=== PATIENT | male | born 1955 | race Caucasian/White ===

== ENCOUNTER 2020-02-09 09:59 | Emergency (ER) | payer MEDICARE, SELFPAY ==
--- NOTE | 2020-02-09 10:07 | ED.URI ---
HPI - URI/Sore Throat General Chief Complaint: Upper Respiratory Infection Stated Complaint: Cough weak lightheaded Time Seen by Provider: 02/09/20 10:14 Source: patient and RN notes reviewed History of Present Illness HPI Narrative: Patient is a 64-year-old male that presents the urgent care with complaints of cough, fatigue, runny nose. Patient states is been ongoing for approximately 9 days and he is requesting a Z-Lorenzo for his sinus infection . Patient is also requesting to be swab for influenza considering his grandson had flu a 9 days ago. Denies of any fever or shortness of breath. Patient denies any risk factors for COVID. No other acute complaints. No acute distress noted. Patient read the plan of care. Related Data Home Medications Medication Instructions Recorded Confirmed No Home Medications 02/09/20 02/09/20 Allergies Allergy/AdvReac Type Severity Reaction Status Date / Time Tetanus Vaccines and Toxoid Allergy Swelling Verified 02/09/20 10:18 Review of Systems Review of Systems: Narrative: CONSTITUTIONAL: Denies fever, chills, or sweats. Reports of fatigue EYES: Denies visual changes, redness, or discharge. ENT: Reports of rhinorrhea and intermittent congestion CARDIOVASCULAR: Denies chest pain, palpitations, or edema. RESPIRATORY: Reports of nonproductive cough without dyspnea GASTROINTESTINAL: Denies abdominal pain, nausea, vomiting, or diarrhea. GENITOURINARY: Denies dysuria or hematuria. SKIN: Denies rash or itching. MUSCULOSKELETAL: Denies back pain, joint pain, or myalgia. NEUROLOGIC: Denies headache, numbness, or weakness. All other systems reviewed are negative, except as documented in HPI. PMFSH Comments At the time of my signature, I reviewed and agree with the nursing past medical, surgical, social, and family history. There is no relevant family history pertinent to the patient complaint. Exam Narrative: Exam Narrative: GENERAL: This is a well-nourished, well-developed patient, in no apparent distress. HEAD: normocephalic, atraumatic. EYES: PERRL. Sclera clear/white. Vision is grossly intact. EARS: External ears normal, auditory canals clear and without drainage, TMs normal without perforation. Hearing grossly intact. NOSE: External nose normal with no obvious nasal discharge, mild bilateral erythemic nares with clear rhinorrhea. THROAT: Mucous membranes moist, posterior pharynx clear. Mild postnasal drainage NECK: Neck supple CARDIOVASCULAR: Regular rate and rhythm without murmurs, gallops, or rubs. RESPIRATORY: Clear to auscultation. Breath sounds equal bilaterally. No wheezes, rales, or rhonchi. SKIN: warm, intact with no suspicious lesions or rash, good texture and turgor. NEURO: awake, alert, and oriented to person, place and time. There were no obvious focal neurologic abnormalities. EXTREMITIES: No clubbing, cyanosis, or edema. Course Vital Signs Vital signs: Vital Signs Temperature 98.3 F 02/09/20 10:08 Pulse Rate 91 02/09/20 10:08 Respiratory Rate 18 02/09/20 10:08 Blood Pressure 173/96 H 02/09/20 10:08 Pulse Oximetry 97 02/09/20 10:08 Temperature 98.3 F 02/09/20 10:08 Pulse Rate 91 02/09/20 10:08 Respiratory Rate 18 02/09/20 10:08 Blood Pressure 173/96 H 02/09/20 10:08 Pulse Oximetry 97 02/09/20 10:08 Reviewed?patient is informed that they may have pre-hypertension or hypertension based on a blood pressure reading in the department. I recommend the patient call the primary care provider listed on their discharge instructions or a physician of their choice this week to arrange follow-up for further evaluation of possible pre-hypertension or hypertension. MDM - URI/Sore Throat MDM Narrative Medical decision making narrative: Reviewed lab results with the patient. He is aware that her flu swab was negative. Advised the patient to use [id number] remedies for upper respiratory virus. If symptoms persist and he would like to follow-u
[2020-02-09 10:08] VITALS: BP 173/96; PULSE 91; RESP 18; TEMP 36.8; O2SAT 97
== END 2020-02-09 10:47 | disposition home or self-care (01) ==
PROVIDERS: Emergency Provider Nurse Practitioner Family
DX: J06.9 Acute upper respiratory infection, unspecified (principal)
CPT/HCPCS: 87804; 99213; G0463

== ENCOUNTER 2022-01-16 10:03 | Outpatient (CLI) | payer OTHER, SELFPAY ==
--- NOTE | ~2022-01-16 | CT_ITS ---
EXAMINATION: CT lung screening DATE: 01/16/2022 10:21 INDICATION: Personal history of nicotine dependence TECHNIQUE: Computed tomography (CT) of the chest was performed without intravenous contrast. The dose -length product was 83.73 mGy-cm. Automated exposure control and iterative reconstruction technique w ere employed. COMPARISON: None FINDINGS: No significant pleural or pericardial effusion. No thoracic lymphadenopathy. Heart size is normal. There is mild atherosclerosis. The upper abdomen is unremarkable. There is emphysema. No endo bronchial lesions. There is dependent atelectasis. There is a 3 mm right upper lobe nodule, image 41. There are a few additional 2-3 mm upper lobe nodules. There is a 3 mm right lower lobe nodule, image 75. There is right lower lobe atelectasis. No pneumothorax. No endobronchial lesions. Mild thoracic spondylosis. IMPRESSION: 1. Lung-RADS category 2: Benign appearance or behavior. Continue annual screening with noncontrast lo w-dose chest CT in 12 months. Reviewed, dictated and finalized at location A. [employer] MACH[employer] IMPRESSION: 1. Lung-RADS category 2: Benign appearance or behavior. Continue annual screeni ng with noncontrast low-dose chest CT in 12 months.
== END 2022-01-16 10:04 | disposition home or self-care (01) ==
LOC: ANHIMG 10:07
PROVIDERS: PCP Family Medicine; Visit Provider Nurse Practitioner Family
DX: Z87.891 Personal history of nicotine dependence (principal)
CPT/HCPCS: 71271

== ENCOUNTER 2022-05-08 01:15 | Day surgery (SDC) | payer OTHER, SELFPAY ==
[2022-04-22 13:12] VITALS: BMI 24.3
[2022-05-08 09:33] VITALS: BP 162/84; PULSE 80; RESP 18; TEMP 36.2; O2SAT 98
--- NOTE | 2022-05-08 09:39 | WPDANESEPPF ---
Anes - Initial Pre Proc Eval Procedure: Operation Date: 05/08/22 10:30 Proposed Procedures p Esophagogastroduodenoscopy & Screening Colonoscopy - Flex Ordonez MD Date/Time: 05/08/22 09:39 Surgeon: Flex Ordonez MD Pre Op Diagnosis: hx of colon polyps, nausea Patient Data Age: 66 Gender: M Height: 1.65 m Weight: 68.2 kg Last Vital Signs Temp 36.2 C L 05/08/22 09:33 Pulse 80 05/08/22 09:33 Resp 18 05/08/22 09:33 BP 162/84 H 05/08/22 09:33 Pulse Ox 98 05/08/22 09:33 O2 Del Method Room Air 05/08/22 09:33 Allergies Allergy/AdvReac Type Severity Reaction Status Date / Time Tetanus Vaccines and Toxoid Allergy Unknown SWELLING, Verified 05/08/22 09:31 MUSCLE CRAMPING Home Medications Medication Instructions Recorded Confirmed Type tamsulosin 0.4 mg capsule 0.4 mg PO DAILY #30 caps 05/06/22 05/08/22 Rx Patient hx anesthesia problems: none Family hx anesthesia problems: none Results Review: All pre-operative results and documents have been reviewed as part of the pre-operative evaluation. [facility] Past Medical History Medical History (Updated 05/02/22 @ 08:38 by Carolina Shaw NP) Arthritis BPH without obstruction/lower urinary tract symptoms Cerumen impaction Chronic back pain Dizziness Elevated PSA, less than 10 ng/ml (01/17/22) PSA 4.36 on 01/17/2022 Encounter for screening for other suspected endocrine disorder Encounter to establish care History of stomach ulcers Hypertension Loose stools Nausea Neoplasm of skin (~07/2021) suspicious skin lesions right upper inner thigh Nocturia elevated PSA 4.36 on 01/17/2022 Personal history of colonic polyps Polycythemia (01/17/22) hemoglobin 17.0 with hematocrit elevated at 51.5 on 01/17/2022 Right hand pain Screening for lung cancer (01/17/22) screening CT chest 01/16/2022 with several small pulmonary nodules appearing benign less than 3 mm with recheck in 12 months Tinea cruris Tobacco abuse Family History Family History Mother Hypertension Social History Social History Smoking packs per day: 1 Smoking cigarettes per day: 20.0 Years smoked: 50 Smoking pack-years: 50.00 Smoking status: Current every day smoker Tobacco type: cigarettes Alcohol intake: current Drinks per week: 1 Substance use: current Substance use type: marijuana Last use: 04/22/22 Living arrangements: alone Spiritual care concerns: No Anes - Eval Final PreProcedure Day of Procedure 05/08/22 09:39 Patient weight: normal Heart: regular rate and rhythm Lungs: clear to auscultation Airway: Mallampati scale class II Neurological: alert and oriented Last oral intake: >/= 8 hours ASA classification: III Emergent: no Anesthetic plan: proceed Anesthesia type and monitoring: general GIVS and standard monitoring Results Review: All pre-operative results and documents have been reviewed as part of the pre-operative evaluation. Informed Consent: The patient's anesthetic plan and its attendant risks and benefits were discussed with the patient/family/POA. Questions were solicited and answers provided to the satisfaction of the patient/family/POA.
[2022-05-08] MEDS: LACTATED RINGERS 1,000 ML 150 ML IV CONT (09:40)
--- NOTE | 2022-05-08 09:44 | PM.HPGS ---
History of Present Illness History of Present Illness Consent: Risks, benefits, and alternatives have been discussed and questions answered. Patient agrees to proceed with procedure. Chief complaint: hx of colon polyps, nausea Narrative: Jonathan Blanco Jr. is a 66 year old male he has intermittent episodes of morning nausea and loose stool with abdominal cramping and feeling like passing out, he has not had an episode for long time. Had colon polyp ~ 5 years ago. Review of Systems Constitutional: Constitutional: Denies headache(s) and Denies weakness Eyes: Eyes: Denies blurry vision ENT: Reports Normal hearing present, Denies headache(s) and Denies neck pain Cardiovascular: Cardiovascular: Denies chest pain and Denies dyspnea Respiratory: Respiratory: Denies dyspnea Gastrointestinal: Gastrointestinal: Reports no additional gastrointestinal complaints Genitourinary: Genitourinary: Denies dysuria Musculoskeletal: Musculoskeletal: Denies neck pain Integumentary/Breasts: Skin/Breast: Denies dry skin Neurologic: Reports Normal hearing present, Denies headache(s) and Denies weakness Psychiatric: Psychiatric: Denies anxiety Endocrine: Endocrine: Denies change in body appearance Hematologic/Lymphatic: Hematologic/Lymphatic: Denies easy bleeding Allergic/Immunologic: Allergic/Immunologic: Denies urticaria PMFSH Past Medical History Medical History (Updated 05/02/22 @ 08:38 by Carolina Shaw NP) Arthritis BPH without obstruction/lower urinary tract symptoms Cerumen impaction Chronic back pain Dizziness Elevated PSA, less than 10 ng/ml (01/17/22) PSA 4.36 on 01/17/2022 Encounter for screening for other suspected endocrine disorder Encounter to establish care History of stomach ulcers Hypertension Loose stools Nausea Neoplasm of skin (~07/2021) suspicious skin lesions right upper inner thigh Nocturia elevated PSA 4.36 on 01/17/2022 Personal history of colonic polyps Polycythemia (01/17/22) hemoglobin 17.0 with hematocrit elevated at 51.5 on 01/17/2022 Right hand pain Screening for lung cancer (01/17/22) screening CT chest 01/16/2022 with several small pulmonary nodules appearing benign less than 3 mm with recheck in 12 months Tinea cruris Tobacco abuse Family History Family History Mother Hypertension Social History Social History Smoking packs per day: 1 Smoking cigarettes per day: 20.0 Years smoked: 50 Smoking pack-years: 50.00 Smoking status: Current every day smoker Tobacco type: cigarettes Alcohol intake: current Drinks per week: 1 Substance use: current Substance use type: marijuana Last use: 04/22/22 Living arrangements: alone Spiritual care concerns: No Meds Home Medications and Allergies Home Medications Medication Instructions Recorded Confirmed Type tamsulosin 0.4 mg capsule 0.4 mg PO DAILY #30 caps 05/06/22 05/08/22 Rx Allergies Allergy/AdvReac Type Severity Reaction Status Date / Time Tetanus Vaccines and Toxoid Allergy Unknown SWELLING, Verified 05/08/22 09:31 MUSCLE CRAMPING Vital Signs Vital Signs - 24 hr 05/08/22 09:33 Temperature 97.2 F L Pulse Rate 80 Respiratory Rate 18 Blood Pressure 162/84 H Pulse Oximetry 98 Oxygen Delivery Room Air Exam Const: General: comfortable and no acute distress HENMT: General nose exam: Normal nares present Eyes: General: appearance normal, both eyes and all related structures Neck: Neck: no JVD Resp: Auscultation: clear to auscultation bilaterally Cardio: Rate: regular rate Rhythm: regular rhythm GI: Inspection: non-distended GI Palp: Yes Soft to palpation Skin: General skin exam: normal color Neuro: General: gait normal Speech: normal speech Extrem: General: normal to inspection Psych: Mental Status: mental status grossly normal Assessment an
[2022-05-08 10:22] VITALS: BP 138/87; PULSE 66; RESP 17; O2SAT 100
[2022-05-08 10:32] VITALS: BP 153/87; PULSE 62; RESP 16; O2SAT 100
[2022-05-08 10:42] VITALS: BP 155/96; PULSE 60; RESP 14; O2SAT 100
== END 2022-05-08 10:51 | disposition home or self-care (01) ==
PROVIDERS: PCP Nurse Practitioner Family; Visit Provider Internal Medicine Gastroenterology
PROC: 0DJ08ZZ Inspection of Upper Intestinal Tract, Via Natural or Artificial Opening Endoscopic (ICD-10-PCS; CPT 43235; principal; 2022-05-08 10:30)
DX: Z12.11 Encounter for screening for malignant neoplasm of colon (principal); D12.3 Benign neoplasm of transverse colon; K57.30 Diverticulosis of large intestine without perforation or abscess without bleeding; R19.5 Other fecal abnormalities; K29.50 Unspecified chronic gastritis without bleeding; K44.9 Diaphragmatic hernia without obstruction or gangrene; N40.0 Benign prostatic hyperplasia without lower urinary tract symptoms; F17.210 Nicotine dependence, cigarettes, uncomplicated; F12.90 Cannabis use, unspecified, uncomplicated
CPT/HCPCS: 45385; 43239; 88305; J2001; J2704; J7120

== ENCOUNTER 2023-01-25 08:52 | Outpatient (CLI) | payer OTHER, SELFPAY ==
--- NOTE | ~2023-01-25 | CT_ITS ---
CT Scan of the Chest without Contrast: Clinical Indication: Smoking history, tobacco use, lung cancer screening Technique: Contiguous sections were acquired throughout the chest without intravenous contrast. Dose reduction technique was used on this scan by utilizing automated exposure control and iterative recon struction technique. The dose-length product (DLP) was 114.80 mGy-cm. COMPARISON: 01/16/2022 Findings: There is no evidence of any significant mediastinal, hilar or axillary lymphadenopathy. Mild coronary artery calcium cages are present. No aortic aneurysm. There is no evidence of pleural or pericardial effusion. Stable 4 mm right lower lobe pulmonary nodule (axial image 77). There is linear right basilar scarrin g. Suspected mild emphysema. Images through the upper abdomen reveal no abnormalities. Impression: Lung-RADS 2: Benign appearance. 12 month follow-up screening CT advised. Reviewed, dictated and finalized at [facility]. [employer] Impression: Lung-RADS 2: Benign appearance. 12 month follow-up screening CT advised.
== END 2023-01-25 08:53 | disposition home or self-care (01) ==
PROVIDERS: PCP Nurse Practitioner Family; Visit Provider Nurse Practitioner Family
DX: Z12.2 Encounter for screening for malignant neoplasm of respiratory organs (principal); F17.210 Nicotine dependence, cigarettes, uncomplicated
CPT/HCPCS: 71271

== ENCOUNTER → 2023-10-14 14:03 | Outpatient (CLI) | payer OTHER, SELFPAY ==
--- NOTE | ~2023-10-14 | XR_ITS ---
EXAM: XR thoracic spine 3V DATE: 10/14/2023 14:19 HISTORY: M54.6 - Pain in thoracic spine/no new injury . COMPARISON: CT lung screening 01/25/2023. FINDINGS: Thoracolumbar scoliosis. Senescent changes in the lungs. Multilevel disc space narrowing a nd marginal osteophytosis, moderate at T12-L1. Vertebral body heights maintained. Stable 2 mm retroli sthesis at T12-L1. Vertebral body alignment otherwise intact IMPRESSION: Mild thoracolumbar scoliosis. Multilevel degenerative disc disease, moderate at T12-L1, w here there is a stable grade 1 retrolisthesis. Reviewed, dictated and finalized at location [facility]. RVISOR MACHINING IMPRESSION: Mild thoracolumbar scoliosis. Multilevel degenerative disc disease, moderate at T12-L1, where there is a stable grade 1 retrolisthesis.
== END ==
PROVIDERS: PCP Family Medicine; Visit Provider Nurse Practitioner Family
DX: M41.9 Scoliosis, unspecified (principal); M51.34 Other intervertebral disc degeneration, thoracic region
CPT/HCPCS: 72072

== ENCOUNTER 2024-07-16 11:12 | Emergency (ER) | payer OTHER, SELFPAY ==
--- NOTE | ~2024-07-16 | CT_ITS ---
CT of the Abdomen and Pelvis: Indication: Abdominal pain Technique: 2.5 mm axial scans were obtained through the abdomen and pelvis following intravenous adm inistration of 100 cc of Omnipaque 350. Dose reduction technique was used on this scan by utilizing a utomated exposure control and iterative reconstruction technique. The dose-length product (DLP) was 2 52.93 mGy-cm. Findings: Scans through the lung bases are unremarkable. The liver, spleen, pancreas, gallbladder, adrenals and kidneys are within normal limits. No evidence of aortic aneurysm. No lymphadenopathy. No bowel obstruction or bowel wall thickening. There is sigmoid diverticulosis. Images through the pelvis were performed. Urinary bladder unremarkable. Enlarged prostate gland prese nt with extensive coarse calcifications. Impression: No acute abnormality evident. Sigmoid diverticulosis. Significantly enlarged prostate gland with extensive coarse calcifications. Reviewed, dictated and finalized at [facility]. Impression: No acute abnormality evident. Sigmoid diverticulosis. Significantly enlarged prostate gland with extensive coarse calcifications.
[2024-07-16 11:17] VITALS: BP 176/71; PULSE 93; RESP 20; TEMP 36.6; O2SAT 96
[2024-07-16 11:28] LABS: Basophils Absolute Auto 0.1 K/mm3 (0.0-0.1); Basophils Percent Auto 0.7 % (0.2-1.2); Eosinophils Absolute Auto 0.3 K/mm3 (0-0.3); Eosinophils Percent Auto 1.8 % (0-4.4); Hematocrit 51.2 % (42.0-52.0); Hemoglobin 17.4 g/dL (14.0-18.0); Immature Granulocyte Percent A 0.7 % (0-0.5); Lymphocytes Absolute Auto 3.76 K/mm3 (0.9-3.2); Lymphocytes Percent Auto 24.8 % (18.3-44.2); Mean Corpuscular Hemoglobin 31.6 pg (26-34); Mean Corpuscular Volume 93.1 fl (80-100); Mean Platelet Volume 10.9 fl (7.4-10.4); Monocytes Absolute Auto 0.9 K/mm3 (0.1-0.6); Monocytes Percent Auto 6.1 % (2.6-8.5); Neutrophils Percent Auto 65.9 % (45.5-73.1); Platelet Count Result 286 k/mm3 (150-375); Red Cell Distribution Width 12.7 % (11.5-14.5); White Blood Count 15.2 K/mm3 (4.5-10.0)
[2024-07-16 11:36] LABS: Add Urine Microscopic? NO; Appearance Urine Clear (Clear); Bilirubin Urine Negative (Negative); Blood Urine Negative (Negative); Color Urine Yellow (Yellow); Glucose Urine UA Negative (Negative); Ketones Urine Negative (Negative); Leukocyte Esterase Ur Negative LEU/UL (Negative); Nitrate Urine Negative (Negative); Protein Urine Negative (Negative); Specific Grav Ur 1.008 (1.001-1.035); Urobilinogen Urine 0.2 mg/dL (<2.0); pH Urine 6.5 (5.0-9.0)
[2024-07-16 11:37] LABS: Alanine Aminotransferase 17 U/L (6-50); Albumin Level 4.4 g/dL (3.5-5.1); Alkaline Phosphatase 102 U/L (38-126); Anion Gap 11 mmol/L (4-12); Aspartate Amino Transferase 26 U/L (17-59); Bilirubin,Total 0.5 mg/dL (0.2-1.3); Blood Urea Nitrogen 16 mg/dL (9-20); Calcium 9.6 mg/dL (8.4-10.2); Carbon Dioxide 25 mmol/L (22-30); Chloride 102 mmol/L (98-107); Estimated CRCL calculation 73 ml/min; Estimated Glomerular Filt Rate > 60; Glucose 111 mg/dL (65-110); Lipase 73 U/L (23-300); Potassium 4.2 mmol/L (3.4-5.0); Sodium 138 mmol/L (137-145)
--- NOTE | 2024-07-16 12:36 | ED.ABDPAIN ---
HPI - Abdominal Pain General Chief Complaint: Abdominal Pain Stated Complaint: Diarrhea/cramping/weakness Time Seen by Provider: 07/16/24 11:21 History of Present Illness HPI narrative: 68-year-old male presents emergency department for evaluation for left-sided abdominal pain for approximately last 2 weeks along with mucousy stools. Patient reports he did have a similar episode to this approximately 10 years ago and was ultimately diagnosed with diverticulitis. Patient denies any associated nausea or vomiting. Patient does have so she had left-sided abdominal pain. Patient denies any prior abdominal surgical history. Related Data Home Medications Medication Instructions Recorded Confirmed multivitamin 1 tablet PO DAILY 10/14/23 07/01/24 Allergies Allergy/AdvReac Type Severity Reaction Status Date / Time Tetanus Vaccines and Toxoid Allergy Unknown SWELLING, Verified 07/01/24 07:44 MUSCLE CRAMPING Review of Systems Review of Systems: All systems reviewed & are unremarkable except as noted in HPI and below PMFSH Past Medical History Medical History Acute sinusitis Arthritis BPH associated with nocturia BPH without obstruction/lower urinary tract symptoms Bronchitis Cerumen impaction Chronic back pain Chronic gastritis Colon cancer screening Dizziness Elevated glucose Elevated PSA, less than 10 ng/ml (01/17/22) PSA 4.36 on 01/17/2022 Encounter for screening for other suspected endocrine disorder Encounter to establish care History of stomach ulcers Hx of skin malignancy Hypercholesterolemia Hypertension Loose stools Nausea Neoplasm of skin (~07/2021) suspicious skin lesions right upper inner thigh Nocturia elevated PSA 4.36 on 01/17/2022 Personal history of colonic polyps Polycythemia (01/17/22) hemoglobin 17.0 with hematocrit elevated at 51.5 on 01/17/2022 Right hand pain Screening for lung cancer (01/17/22) screening CT chest 01/16/2022 with several small pulmonary nodules appearing benign less than 3 mm with recheck in 12 months Sinus congestion Thoracic back pain Tinea cruris Tobacco abuse Family History Family History Mother Hypertension Social History Social History Smoking packs per day: 0.25 Smoking cigarettes per day: 5.0 Years smoked: 50 Smoking pack-years: 12.50 Smoking status: Current every day smoker Tobacco type: cigarettes Alcohol intake: current Alcohol use details: Rarely Substance use: current Substance use type: marijuana Last use: 04/22/22 Lack of Transportation: No Lack of Food: Never True Current Housing: I Have Housing Concerned About Future Housing: No Difficulty Paying Gas/Electric Bills: No Difficulty Paying for Meds: No Currently Unemployed: No Education: Trade/Vocational Certificate Difficulty w/ Childcare or Family Care: No Living arrangements: alone Spiritual care concerns: No Exam Narrative: APPEARANCE: Well appearing, no pain, no distress, well-nourished. HEAD: normocephalic, atraumatic. EYES: PERRLA/EOMI, conjunctivae clear. NOSE: Normal no drainage EARS:TMS clear with good light reflex. THROAT: Pharynx clear, no exudate. NECK: Supple. No adenopathy, no masses. RESPIRATORY: Airway patent, respirations nonlabored. Clear to auscultation bilaterally, no rales, rhonchi, wheezing. CARDIOVASCULAR: Regular rate and rhythm without murmurs rubs or gallops. ABDOMINAL: Mild left lower quadrant tenderness to palpation MUSCULOSKELETAL: Moves all extremities. Strength/ROM intact, No edema, No calf tenderness. NEURO: Alert. Cranial nerves II through XII intact. Good gait. Good coordination SKIN: Warm, dry. Normal Color Course Course Emergency Course: Patient was discharged home Vital Signs Vital signs: Vital Signs Temperatu
[2024-07-16 13:27] VITALS: BP 155/95; PULSE 79; RESP 18; O2SAT 94
== END 2024-07-16 13:28 | disposition home or self-care (01) ==
PROVIDERS: Emergency Provider Emergency Medicine; PCP Family Medicine
DX: K52.9 Noninfective gastroenteritis and colitis, unspecified (principal); N40.1 Benign prostatic hyperplasia with lower urinary tract symptoms; R35.1 Nocturia; I10 Essential (primary) hypertension; E78.00 Pure hypercholesterolemia, unspecified; F17.210 Nicotine dependence, cigarettes, uncomplicated; Z85.828 Personal history of other malignant neoplasm of skin
CPT/HCPCS: 36415; 74177; 80053; 81003; 83690; 85025; 99284; Q9967

== ENCOUNTER 2025-05-13 10:37 | Emergency (ER) | payer OTHER, SELFPAY ==
[2025-05-13 11:02] VITALS: BP 175/89; PULSE 87; RESP 16; TEMP 36.3; O2SAT 97
[2025-05-13 14:01] VITALS: BP 164/90; PULSE 71
--- NOTE | 2025-05-13 14:01 | ECG_ITS ---
Test Date: 2025-05-13 14:22:37 Measurements Intervals [place] Rate: 69 P: 63 MN: 170 QRS: 7 QRSD: 133 T: 40 QT: 394 QTc: 424 Interpretive Statements SINUS RHYTHM RIGHT BUNDLE BRANCH BLOCK CONSIDER INFERIOR INFARCT, AGE INDETERMINATE ABNORMAL ECG No previous ECG available for comparison Electronically Signed On 05-13-2025 14:23:59 CDT by Gene Lopez D.O.
[2025-05-13 14:02] VITALS: BP 161/100; PULSE 86
[2025-05-13 14:04] VITALS: BP 183/88; PULSE 76
[2025-05-13 14:22] VITALS: BP 183/88; PULSE 76; RESP 16; TEMP 36.6; O2SAT 96
[2025-05-13 14:26] VITALS: PULSE 72
[2025-05-13 14:31] LABS: Basophils Absolute Auto 0.1 K/mm3 (0.0-0.1); Eosinophils Absolute Auto 0.3 K/mm3 (0-0.3); Eosinophils Percent Auto 2.8 % (0-4.4); Hematocrit 50.7 % (42.0-52.0); Hemoglobin 17.1 g/dL (14.0-18.0); Immature Granulocyte Absolute 0.08 K/mm3 (0.00-0.031); Immature Granulocyte Percent A 0.7 % (0-0.5); Lymphocytes Absolute Auto 3.39 K/mm3 (0.9-3.2); Lymphocytes Percent Auto 31.7 % (18.3-44.2); Mean Corpuscular HGB Conc 33.7 g/dl (32-36); Mean Corpuscular Hemoglobin 31.1 pg (26-34); Mean Corpuscular Volume 92.3 fl (80-100); Mean Platelet Volume 11.4 fl (7.4-10.4); Monocytes Absolute Auto 0.8 K/mm3 (0.1-0.6); Monocytes Percent Auto 7.8 % (2.6-8.5); Platelet Count Result 256 k/mm3 (150-375); Red Blood Count 5.49 M/mm3 (4.6-6.20); Red Cell Distribution Width 12.6 % (11.5-14.5); White Blood Count 10.7 K/mm3 (4.5-10.0)
[2025-05-13 14:34] LABS: Add Urine Microscopic? NO; Appearance Urine Clear (Clear); Bilirubin Urine Negative (Negative); Blood Urine Negative (Negative); Color Urine Yellow (Yellow); Glucose Urine UA Negative (Negative); Ketones Urine Negative (Negative); Leukocyte Esterase Ur Negative LEU/UL (Negative); Nitrate Urine Negative (Negative); Protein Urine Negative (Negative); Specific Grav Ur 1.015 (1.001-1.035); Urobilinogen Urine 0.2 mg/dL (<2.0)
[2025-05-13 14:39] LABS: Alanine Aminotransferase 16 U/L (6-50); Albumin Level 4.3 g/dL (3.5-5.1); Alkaline Phosphatase 86 U/L (38-126); Anion Gap 9 mmol/L (4-12); Aspartate Amino Transferase 24 U/L (17-59); Bilirubin,Total 0.4 mg/dL (0.2-1.3); Blood Urea Nitrogen 19 mg/dL (9-20); Calcium 9.5 mg/dL (8.4-10.2); Carbon Dioxide 25 mmol/L (22-30); Chloride 104 mmol/L (98-107); Estimated CRCL calculation 57 ml/min; Estimated Glomerular Filt Rate > 60; Glucose 98 mg/dL (65-110); Potassium 4.3 mmol/L (3.4-5.0); Sodium 138 mmol/L (137-145); Total Protein 7.5 g/dL (6.3-8.2)
[2025-05-13] MEDS: SODIUM CHLORIDE 0.9% IV 1,000 ML 999 ML IV CONT (15:08)
[2025-05-13 15:30] LABS: NT Pro B Type Natriuretic Pept 82 pg/mL (19.9-100); Troponin I < 0.012 ng/mL (0.000-0.034)
[2025-05-13 15:37] LABS: D Dimer < 0.27 ug/mL (<0.48)
--- NOTE | 2025-05-13 16:26 | ED.GENADULT ---
HPI - General Adult General Chief complaint: Syncope Stated complaint: syncope yesterday Time Seen by Provider: 05/13/25 13:47 History of Present Illness HPI narrative: This is a 69-year-old male presenting 36 hours after a syncopal event. Patient says that he got up at 1 am to use the restroom. He was urinating and then when he tried to go flushed the toilet he ended up on the ground. No tongue biting. No loss of continence. He did have some intermittent stabbing pains in the right side of his chest before he passed out. He has not any symptoms since then. He is currently asymptomatic with no fevers chills chest pain breathing abdominal pain urinary symptoms nausea vomiting diarrhea. Related Data Home Medications ?Medication ?Instructions ?Recorded ?Confirmed ?Last Taken ?Type multivitamin 1 tablet PO DAILY 10/14/23 03/08/25 Unknown History Allergies Allergy/AdvReac Type Severity Reaction Status Date / Time Tetanus Vaccines and Toxoid Allergy Unknown SWELLING, Verified 05/13/25 11:05 MUSCLE CRAMPING PMFSH Past Medical History Medical History Eye discharge Localized skin mass, lump, or swelling Elevated glucose Hx of skin malignancy Thoracic back pain Bronchitis Acute sinusitis Chronic gastritis Sinus congestion BPH associated with nocturia Colon cancer screening Hypercholesterolemia Dizziness Nausea Loose stools Neoplasm of skin (~07/2021) suspicious skin lesions right upper inner thigh BPH without obstruction/lower urinary tract symptoms Elevated PSA, less than 10 ng/ml (01/17/22) PSA 4.36 on 01/17/2022 Polycythemia (01/17/22) hemoglobin 17.0 with hematocrit elevated at 51.5 on 01/17/2022 Tinea cruris Personal history of colonic polyps Screening for lung cancer (01/17/22) screening CT chest 01/16/2022 with several small pulmonary nodules appearing benign less than 3 mm with recheck in 12 months Chronic back pain Right hand pain Cerumen impaction Encounter to establish care Encounter for screening for other suspected endocrine disorder Nocturia elevated PSA 4.36 on 01/17/2022 Tobacco abuse Hypertension History of stomach ulcers Arthritis Family History Family History Mother Hypertension Social History Social History Smoking packs per day: 0.25 Smoking cigarettes per day: 5.0 Years smoked: 50 Smoking pack-years: 12.50 Smoking status: Current every day smoker Tobacco type: cigarettes Alcohol intake: current Alcohol use details: Rarely Substance use: current Substance use type: marijuana Last use: 04/22/22 Lack of Transportation: No Lack of Food: Never True Current Housing: I Have Housing Concerned About Future Housing: No Difficulty Paying Gas/Electric Bills: No Difficulty Paying for Meds: No Currently Unemployed: No Education: Trade/Vocational Certificate Difficulty w/ Childcare or Family Care: No Living arrangements: alone Spiritual care concerns: No Exam Narrative: APPEARANCE: No apparent distress. A&O x3, well appearing Head: atraumatic. EYES: EOMI, NOSE: Atraumatic NECK: Trachea midline RESPIRATORY: No increased rate of breathing CTAB CARDIOVASCULAR: RRR, no peripheral edema ABDOMINAL: Non-distended soft MUSCULOSKELETAl: No obvious deformities NEURO: Alert. Moving 4/4 extremities SKIN:: Warm, dry. Normal color PSYCHIATRIC: Normal affect Course Vital Signs Vital signs: Vital Signs Temperature 97.4 F L 05/13/25 11:02 Pulse Rate 87 05/13/25 11:02 Respiratory Rate 16 05/13/25 11:02 Blood Pressure 175/89 H 05/13/25 11:02 Pulse Oximetry 97 05/13/25 11:02 Oxygen Delivery Room Air 05/13/25 11:02 Temperature 97.8 F 05/13/25 14:22 Pulse Rate 72 05/13/25 14:26 Respiratory Rate 16 05/13/25 14:22 Blood Pressure 183/88 H 05/13/25 14:22 Pulse Oximetry 96 05/13/25 14:22 Oxygen Delivery Room Air 05/13/25 14:22 Medical Decision Making MDM Narrative Medical decision making narrative: -Course: 69-year-old male presenting 36 hours after syncopal event. Event occurred after the patient woke up in the middle night and was urinating. This is likely a combination of vasovagal/micturition/orthostatic syncope. His workup here included basic labs troponin D-dimer and BNP were all unremarkable. EKG shows a new bundle-branch block although her last comparison was in 2016 Patient has been asymptomatic since event. Patient is requesting discharge. He will be discharged to follow-up with primary care physician. -DDX includes but is not limited to: Micturition syncope, orthostatic syncope, cardiogenic syncope, vasovagal syncope Vital Signs Vital Signs: Vital Signs Temperature 97.4 F L 05/13/25 11:02 Pulse Rate 87 05/13/25 11:02 Respiratory Rate 16 05/13/25 11:02 Blood Pressure 175/89 H 05/13/25 11:02 Pulse Oximetry 97 05/13/25 11:02 Oxygen Delivery Room Air 05/13/25 11:02 Temperature 97.8 F 05/13/25 14:22 Pulse Rate 72 05/13/25 14:26 Respiratory Rate 16 05/13/25 14:22 Blood Pressure 183/88 H 05/13/25 14:22 Pulse Oximetry 96 05/13/25 14:22 Oxygen Delivery Room Air 05/13/25 14:22 Lab Data 05/13/25 14:16 05/13/25 14:16 Labs: Lab Results 05/13/25 05/13/25 Range/Units 14:16 17:24 WBC 10.7 H (4.5-10.0) K/mm3 RBC 5.49 (4.6-6.20) M/mm3 Hgb 17.1 (14.0-18.0) g/dL Hct 50.7 (42.0-52.0) % MCV 92.3 (80-100) fl MCH 31.1 (26-34) pg MCHC 33.7 (32-36) g/dl RDW 12.6 (11.5-14.5) % Plt Count 256 (150-375) k/mm3 MPV 11.4 H (7.4-10.4) fl Immature Gran % (Auto) 0.7 H (0-0.5) % Neut % (Auto) 56.0 (45.5-73.1) % Lymph % (Auto) 31.7 (18.3-44.2) % Sabine % (Auto) 7.8 (2.6-8.5) % Eos % (Auto) 2.8 (0-4.4) % Baso % (Auto) 1.0 (0.2-1.2) % Lymph # (Auto) 3.39 H (0.9-3.2) K/mm3 Sabine # (Auto) 0.8 H (0.1-0.6) K/mm3 Eos # (Auto) 0.3 (0-0.3) K/mm3 Baso # (Auto) 0.1 (0.0-0.1) K/mm3 Abs Immat Gran (auto) 0.08 H (0.00-0.031) K/mm3 Absolute Neuts (auto) 6.0 (1.3-6.7) K/mm3 Absolute Nucleated RBC 0.000 (0.0-0.012) K/mm3 Nucleated RBC % 0.0 (0.0-0.2) % D-Dimer < 0.27 (<0.48) ug/mL Sodium 138 (137-145) mmol/L Potassium 4.3 (3.4-5.0) mmol/L Chloride 104 (98-107) mmol/L Carbon Dioxide 25 (22-30) mmol/L Anion Gap 9 (4-12) mmol/L BUN 19 (9-20) mg/dL Creatinine 0.93 (0.7-1.3) mg/dL Estim Creat Clear Calc 57 ml/min Estimated GFR > 60 (59 - ) Glucose 98 (65-110) mg/dL Calcium 9.5 (8.4-10.2) mg/dL Total Bilirubin 0.4 (0.2-1.3) mg/dL AST 24 (17-59) U/L ALT 16 (6-50) U/L Alkaline Phosphatase 86 (38-126) U/L Troponin I < 0.012 < 0.012 (0.000-0.034) ng/mL NT-Pro-B Natriuret Pep 82 (19.9-100) pg/mL Total Protein 7.5 (6.3-8.2) g/dL Albumin 4.3 (3.5-5.1) g/dL Urine Color Yellow (Yellow) Urine Appearance Clear (Clear) Urine pH 6.0 (5.0-9.0) Ur Specific [place] 1.015 (1.001-1.035) Urine Protein Negative (Negative) mg/dL Urine Glucose (UA) Negative (Negative) mg/dL Urine Ketones Negative (Negative) mg/dL Ur Blood (Man) Negative (Negative) Urine Nitrate Negative (Negative) Urine Bilirubin Negative (Negative) Urine Urobilinogen 0.2 (<2.0) mg/dL Leukocyte Esterase Rfl Negative (Negative) [place]/UL Discharge Plan Discharge Clinical Impression: Syncope Patient Disposition: Home Condition: Stable Instructions: Antibiotic Form, Syncope (DC) Additional Instructions: You were seen in the emergency department for syncope. Your workup here was reassuring. Please follow-up with your primary care physician for further management. If you faint again, developed chest pain or shortness of breath please return to ED for re-evaluation. Patient Language: Ukrainian Prescriptions: No Action clotrimazole 1 % solution See Rx Instructions topical .COMPLEX Qty: 30 0RF Rx Instructions: 5 drops, three-four times per day, both ear canals, use until follow up multivitamin Tablet 1 tablet PO DAILY irbesartan 150 mg tablet 150 mg PO DAILY Qty: 30 5RF olopatadine [Pataday Once Daily Relief] 0.2 % drops 1 drp EACH EYE DAILY Qty: 2.5 5RF fluticasone propionate [Flonase Allergy Relief] 50 mcg/actuation spray,suspension 1 spray intranasal Q12H Qty: 16 0RF Rx Instructions: administer into each nostril fluocinolone acetonide oil [DermOtic Oil] 0.01 % drops 5 drp otic (ear) . q.h.s. p.r.n. 7 Days Qty: 20 2RF Rx Instructions: put 5 drops in each ear q.h.s. with ear up for 1 minute afterwards p.r.n. itching Follow-up/Referrals: Carolina Shaw NP [Primary Care Provider] - 3 Days (Syncope )
--- NOTE | 2025-05-13 17:48 | ECG_ITS ---
Test Date: 2025-05-13 17:28:39 Measurements Intervals [place] Rate: 70 P: 66 WI: 176 QRS: 42 QRSD: 128 T: 43 QT: 395 QTc: 427 Interpretive Statements SINUS RHYTHM RIGHT BUNDLE BRANCH BLOCK CONSIDER INFERIOR INFARCT, AGE INDETERMINATE ABNORMAL ECG Compared to ECG 05/13/2025 14:22:37 NO SIGNIFICANT CHANGE Electronically Signed On 05-13-2025 19:06:47 CDT by Gene Lopez D.O.
[2025-05-13 18:03] LABS: Troponin I < 0.012 ng/mL (0.000-0.034)
== END 2025-05-13 18:53 | disposition home or self-care (01) ==
PROVIDERS: Emergency Provider Emergency Medicine; PCP Nurse Practitioner Family
DX: R55 Syncope and collapse (principal); I10 Essential (primary) hypertension; E78.00 Pure hypercholesterolemia, unspecified; N40.1 Benign prostatic hyperplasia with lower urinary tract symptoms; R35.1 Nocturia; M19.90 Unspecified osteoarthritis, unspecified site; F17.210 Nicotine dependence, cigarettes, uncomplicated; Z85.828 Personal history of other malignant neoplasm of skin; Z86.0100 Personal history of colon polyps, unspecified; I45.10 Unspecified right bundle-branch block; R94.31 Abnormal electrocardiogram [ECG] [EKG]
CPT/HCPCS: 36415; 80053; 81003; 83880; 84484; 85025; 85380; 93005; 96360; 99284; J7030

== ENCOUNTER 2025-05-18 10:53 | Outpatient (CLI) | payer OTHER, SELFPAY ==
--- NOTE | ~2025-05-18 | CT_ITS ---
History: Remote history of a fall PROCEDURE: CT head without contrast. COMPARISON: None TECHNIQUE: Axial imaging of the head performed from the skull base to the vertex without IV contrast. Sagittal a nd coronal reformations obtained. DLP: 681 mGy-cm FINDINGS: The ventricles are normal in size, shape and position. There is no mass, mass effect or midline shift. A left frontal subdural hematoma is identified, measuring 9.2 cm in greatest dimension consistent wit h patients history of a remote fall. Effacement of the sulci is detected within the left frontal lobe, suggesting adjacent edema. Visualized paranasal sinuses are clear. The mastoid air cells are well aerated. No acute displaced fractures within the overlying cranium. Impression: Left frontal subdural hematoma with adjacent parenchymal edema Findings discussed with the Carolina Shaw at 11:15 AM on 05/18/2025 Reviewed, dictated and finalized at location A. Impression: Left frontal subdural hematoma with adjacent parenchymal edema Findings discussed with the Carolina Shaw at 11:15 AM on 05/18/2025
--- OUTSIDE RECORDS SUMMARY | 2025-05-18 11:05 | XMS_ITS | Clinical Summary ---
Author Organization [facility] [employer] [facility] Address [address] [place] [address] Care Team Providers Care Free Lance Model Name Role Phone Alexis Hensley MD Primary Care Provider [phone] Source Comments [facility],non-owned Affiliates and Associated Physician Practices is amultiple site organization consisting of ambulatory clinics and hospital sitesin [place], [place], [place] and [place]. This disclosure is being madepursuant to the Care Everywhere program and may not contain all information available regarding this patient. Last updated 18.[facility] [employer] [facility] Allergies Active Allergy Reactions Criticality Noted Date Comments Tetanus Toxoids Swelling Low 05/17/2016 Muscle problems and soreness Medications * Be aware that medications may not be up to date on this document. Alwaysverify current medications with the patient. 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 Multiple benign melanocytic nevi of upper and lower extremities and trunk 02/17/2019 Seborrheic keratoses 02/17/2019 Neoplasm of uncertain behavior of skin 9 Solar lentiginosis 02/17/2019 Family History Medical History Relation Name Comments Asthma Neg Hx CVA Neg Hx Cancer - Breast Neg Hx Cancer - Other Neg Hx Cancer - Skin, Melanoma Neg Hx Eczema Neg Hx Hemophilia Neg Hx Psoriasis Neg Hx Social History Tobacco Use Types Packs/Day Years Used Date Smoking Tobacco: Every Day Cigarettes 1 40 Smokeless Tobacco: Never Alcohol Use Standard Drinks/Week Comments Yes 1 (1 standard drink = 0.6 oz pur e alcohol) Sex and Gender Information Value Date Recorded Sex Assigned at Not on file 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 Gender Identity Not on file Sexual Orientation Not on file Last Filed Vital Signs Vital Sign Reading Time Taken Comments Blood Pressure 150/94 04/06/2019 11:45 AM CDT Pulse 74 04/06/2019 11:45 AM CDT Temperature 36.8 C (98.2 F) 03/19/2019 2:15 PM CDT Respiratory Rate 18 03/19/2019 2:15 PM CDT Oxygen Saturation 98% 04/06/2019 11:45 AM CDT Inhaled Oxygen Concentration - - Weight 67.1 kg (148 lb) 05/28/2019 9:48 AM CDT Height 160 cm (5' 3) 05/28/2019 9:48 AM CDT Body Mass Index 26.22 05/28/2019 9:48 AM CDT Plan of Treatment Health Maintenance Due Date Last Done Comments COLOGUARD (AGES 45-75) - COL ON CA SCREENING 1954 COLON MONITORING 1954 COLONOSCOPY - COLON CA SCREENING 1954 CT COLONOGRAPHY - COLON CA SCREENING 1954 Colorectal Cancer Screening 1954 FIT - COLON CA SCREENING 1954 FLEX SIG - COLON CA SCREENING 1954 LIPID TESTING 1954 HEPATITIS C SCREENING 10/11/1972 DTAP/TDAP/TD VACCINES (1 - Tdap) 1973 LUNG CANCER SCREENING 2004 PNEUMOCOCCAL VACCINE 50+ (1 of 1 - PCV) 2004 ZOSTER VACCINE (1 of 2) 2004 AAA SCREENING 2019 SCREENING FOR DIABETES 02/16/2021 8, 02/16/2018 COVID-19 VACCINE (1 - 2023-2 5 season) 2024 DEPRESSION SCREENING 11/17/2024 INFLUENZA VACCINE (Season Ended) 2025 Respiratory Syncytial Virus (RSV) Vaccine Pt: or over 60 yrs (1 - 1-dose 75+ series) 2029 HEPATITIS B VACCINE Aged Out No longe r eligible based on patient's age to complete this topic HIB VACCINE Aged Out No longer eligi ble based on patient's age to complete this topic HPV VACCINE Aged Out No longer eligi ble based on patient's age to complete this topic MENINGOCOCCAL (Group B) VACCINE SHARED DECISION-MAKING Aged Out No longer eligible based on patient's age to complete this topic MENINGOCOCCAL GROUPS A/C/Y/W VACCINE Aged Out No longer eligible b ased on patient's age to complete this topic Insurance MEDICAID [employer] [facility] [place] MEDICARE [facility] Care Teams Free Lance Model Relationship Specialty Start Date End Date Alexis Hensley MD [address] [place] [id number] PCP - General 02/24/19
--- OUTSIDE RECORDS SUMMARY | 2025-05-18 11:05 | XMS_ITS | Clinical Summary ---
Author Organization [facility] Address [address] [place] [address] Phone Care Team Providers Care Eyewear Consultant Name Role Phone Alexis Hensley MD Primary Care Provider [phone] Allergies Active Allergy Reactions Criticality Noted Date Comments Tetanus Immune Globulin Other (see Comments) Achy muscles Medications HYDROcodone-thomas taminophen (NORCO) 5-325 MG Tablet Take 1 Tab by mouth every 6 hours as needed for Severe pain. 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 Gender Identity Not on file Sexual Orientation Not on file Last Filed Vital Signs Vital Sign Reading Time Taken Comments Blood Pressure 167/101 04/08/2021 8:23 AM CDT Pulse 92 04/08/2021 8:23 AM CDT Temperature 35.8 C (96.5 F) 04/08/2021 8:23 AM CDT Respiratory Rate 20 04/08/2021 8:23 AM CDT Oxygen Saturation 97% 04/08/2021 8:23 AM CDT Inhaled Oxygen Concentration - - Weight 65.8 kg (145 lb) 04/08/2021 8:23 AM CDT Height 165.1 cm (5' 5) 04/08/2021 8:23 AM CDT Body Mass Index 24.13 04/08/2021 8:23 AM CDT Plan of Treatment Health Maintenance Due Date Last Done Comments Hepatitis C Virus (HCV) Screening 1954 TdaP Immunization 1954 Cologuard 1999 Colonoscopy 1999 Colorectal Cancer Screening 1999 Immunochemical Fecal Occult Blood 1999 Pneumococcal Immunization (5 0+ years) (1 of 1 - PCV) 2004 Zoster Immunization (1 of 2) 2004 SARS-COV-2 Immunization (3 - season) 2024 10/09/2021, 01/21/2021 Influenza Immunization (Seas on Ended) 2025 Respiratory Syncytial Virus (RSV) Immunization (Adult) (1 - 1-dose 75+ series) 2029 Hepatitis B Immunization Aged Out No longer eligible based on patient's age to complete this topic Human Papillomavirus (HPV) Immunization Aged Out No longer eligible b ased on patient's age to complete this topic Meningococcal Immunization (ACWY) Aged Out No longer eligible b ased on patient's age to complete this topic Rotavirus Immunization Aged Out No lo nger eligible based on patient's age to complete this topic Insurance MEDICARE Care Teams Eyewear Consultant Relationship Specialty Start Date End Date Alxeis Hensley MD [address] [place] [id number] PCP - General Family Medicine 02/17/19
== END 2025-05-18 10:54 | disposition home or self-care (01) ==
PROVIDERS: PCP Nurse Practitioner Family; Visit Provider Nurse Practitioner Family
DX: R42 Dizziness and giddiness (principal); S09.90XA Unspecified injury of head, initial encounter; X58.XXXA Exposure to other specified factors, initial encounter
CPT/HCPCS: 70450

== ENCOUNTER 2025-05-18 13:10 | Emergency (ER) | payer OTHER, SELFPAY ==
[2025-05-18 13:16] VITALS: BP 179/88; PULSE 88; RESP 18; TEMP 36.9; O2SAT 96
--- OUTSIDE RECORDS SUMMARY | 2025-05-18 13:16 | XMS_ITS | Clinical Summary ---
Author Organization [facility] [employer] Address [address] [place] [address] Care Team Providers Care Virtualization Architect Name Role Phone Alexis Hensley MD Primary Care Provider [phone] Source Comments [facility] [employer],non-owned Affiliates and Associated Physician Practices is amultiple site organization consisting of ambulatory clinics and hospital sitesin [place], [place], [place] and [place]. This disclosure is being madepursuant to the Care Everywhere program and may not contain all information available regarding this patient. 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
--- OUTSIDE RECORDS SUMMARY | 2025-05-18 13:16 | XMS_ITS | Clinical Summary ---
Author Organization [facility] Address [address] [place] [address] Phone Care Team Providers Care Synthetic Filament Spinner Name Role Phone Alexis Hensley MD Primary Care Provider [phone] Allergies Active Allergy Reactions Criticality Noted Date [...] on file Legal Sex Male 1:37 PM CPC Gender Identity Not on file Sexual Orientation [...] complete this topic Insurance MEDICARE Care Teams Synthetic Filament Spinner Relationship Specialty Start Date End Date Alexis Hensley MD [address] [place] [phone] PCP - General Family Medicine 02/17/19
[2025-05-18 13:24] VITALS: PULSE 89
--- NOTE | 2025-05-18 13:29 | ECG_ITS ---
Test Date: 2025-05-18 13:39:55 Measurements Intervals [place] Rate: 89 P: 58 MD: 154 QRS: 61 QRSD: 132 T: 53 QT: 362 QTc: 441 Interpretive Statements SINUS RHYTHM RIGHT BUNDLE BRANCH BLOCK [120+ ms QRS DURATION, UPRIGHT V1, 40+ ms S IN I/aVL/V4/V5/V6] MARKED T-WAVE ABNORMALITY, CONSIDER ANTERIOR ISCHEMIA [-0.5+ mV T-WAVE IN V3/V4] Compared to ECG 05/13/2025 17:28:39 T-wave abnormality now present Possible ischemia now present Myocardial infarct finding no longer present Electronically Signed On 05-19-2025 16:32:01 CDT by Marilyn Gerard
[2025-05-18] MEDS: levETIRAcetam 1500MG/NACL100ML 1,500 MG/100 ML BAG 400 MG IVPB (13:33)
[2025-05-18 13:35] VITALS: BP 177/80; PULSE 92; RESP 16; O2SAT 96
[2025-05-18 13:36] LABS: Hematocrit 48.9 % (42.0-52.0); Hemoglobin 16.3 g/dL (14.0-18.0); Immature Granulocyte Percent A 0.7 % (0-0.5); Lymphocytes Absolute Auto 2.91 K/mm3 (0.9-3.2); Mean Corpuscular HGB Conc 33.3 g/dl (32-36); Mean Corpuscular Hemoglobin 30.4 pg (26-34); Mean Corpuscular Volume 91.2 fl (80-100); Nucleated Red Blood Cells Absolute Auto 0.000 K/mm3 (0.0-0.012); Nucleated Red Blood Cells Perc 0.0 % (0.0-0.2); Platelet Count Result 254 k/mm3 (150-375); Red Blood Count 5.36 M/mm3 (4.6-6.20); White Blood Count 10.0 K/mm3 (4.5-10.0)
--- NOTE | 2025-05-18 13:38 | PC.NURSE ---
Dr. Robledo at bedside updating pt. and pt. visitor.
--- OUTSIDE RECORDS SUMMARY | 2025-05-18 13:39 | XMS_ITS | Clinical Summary ---
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
--- OUTSIDE RECORDS SUMMARY | 2025-05-18 13:39 | XMS_ITS | Clinical Summary ---
Author Organization [email or web address] Address [address] [place] [address] Care Team Providers Care Biochemistry Technologist Name Role Phone Alexis Hensley MD Primary Care Provider [phone] Source Comments [facility],non-owned Affiliates and Associated Physician Practices is amultiple site organization consisting of ambulatory clinics and hospital sitesin [place], [place], [place]. This disclosure is being madepursuant to the Care Everywhere program and may not contain all information available regarding this patient. 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
--- NOTE | 2025-05-18 13:42 | ED_ITS ---
HPI - Head Injury General Chief complaint: Dizziness Stated complaint: abnormal CT Time Seen by Provider: 05/18/25 13:23 History of Present Illness HPI Narrative: 69-year-old male with a history of hypertension presenting to the emergency department after an outpatient CT scan was performed today that shows a left frontal subdural hematoma. Patient states that he was at home when he was in the bathroom and felt lightheaded and dizzy and fell forward and woke up on the ground with significant headache. His headache with left-sided intermittent in nature. He went to his primary doctor today to obtain a scan outside the hospital that showed frontal hematoma and he was referred to the emergency department for evaluation. Patient endorsing numbness and tingling in his right lower extremity but no other weakness, sensory deficits, facial droop or asymmetry. No history of brain injuries or trauma before. No anticoagulation use. He takes blood pressure medicines at home but is hypertensive in triage. No chest pain, neck pain, shortness a breath, abdominal pain, vision changes, nausea or vomiting. Related Data Home Medications ?Medication ?Instructions ?Recorded ?Confirmed ?Last Taken ?Type multivitamin 1 tablet PO DAILY 10/14/23 05/18/25 05/18/25 History Allergies Allergy/AdvReac Type Severity Reaction Status Date / Time Tetanus Vaccines and Toxoid Allergy Unknown SWELLING, Verified 05/18/25 13:26 MUSCLE CRAMPING Review of Systems 2 Review of Systems: As reviewed above in HPI [facility] Past Medical History Medical History SOB (shortness of breath) on exertion Chest pain Head injury Eye discharge Localized skin mass, lump, or swelling Elevated glucose Hx of skin malignancy Thoracic back pain Bronchitis Acute sinusitis Chronic gastritis Sinus congestion BPH associated with nocturia Colon cancer screening Hypercholesterolemia Dizziness Nausea Loose stools Neoplasm of skin (~07/2021) suspicious skin lesions right upper inner thigh BPH without obstruction/lower urinary tract symptoms Elevated PSA, less than 10 ng/ml (01/17/22) PSA 4.36 on 01/17/2022 Polycythemia (01/17/22) hemoglobin 17.0 with hematocrit elevated at 51.5 on 01/17/2022 Tinea cruris Personal history of colonic polyps Screening for lung cancer (01/17/22) screening CT chest 01/16/2022 with several small pulmonary nodules appearing benign less than 3 mm with recheck in 12 months Chronic back pain Right hand pain Cerumen impaction Encounter to establish care Encounter for screening for other suspected endocrine disorder Nocturia elevated PSA 4.36 on 01/17/2022 Tobacco abuse Hypertension History of stomach ulcers Arthritis Family History Family History Mother Hypertension Social History Social History Smoking packs per day: 0.25 Smoking cigarettes per day: 5.0 Years smoked: 50 Smoking pack-years: 12.50 Smoking status: Current every day smoker Tobacco type: cigarettes Alcohol intake: current Alcohol use details: Rarely Substance use: current Substance use type: marijuana Last use: 04/22/22 Lack of Transportation: No Lack of Food: Never True Current Housing: I Have Housing Concerned About Future Housing: No Difficulty Paying Gas/Electric Bills: No Difficulty Paying for Meds: No Currently Unemployed: No Education: Trade/Vocational Certificate Difficulty w/ Childcare or Family Care: No Living arrangements: alone Spiritual care concerns: No Exam 2 Narrative: GENERAL: [Well-appearing, well-nourished, and in no acute distress.] HEAD: Left frontal scalp hematoma no active bleeding EYES: [PERRLA and EOMI.] ENT: Nares clear, no rhinorrhea or epistaxis. Mucous membranes moist. NECK: Supple. CHEST: [Clear to auscultation. No respiratory distress.] HEART: [Regular rate and rhythm]. No murmur heard. [Normal peripheral pulses.] ABDOMEN: [Soft, nondistended], [nontender], [No rigidity or guarding] EXTREMITIES: Normal range of motion. [No edema.] SKIN: Warm, dry, no rash. NEURO: Right lower extremity but also sensation, no strength deficits, no facial asymmetry, alert oriented x4, no slurring speech, answering all questions appropriately. PSYCH: [Normal mood and affect.] Course Vital Signs Vital signs: Vital Signs Temperature 36.9 C 05/18/25 13:16 Pulse Rate 88 05/18/25 13:16 Respiratory Rate 18 05/18/25 13:16 Blood Pressure 179/88 H 05/18/25 13:16 Pulse Oximetry 96 05/18/25 13:16 Oxygen Delivery Room Air 05/18/25 13:16 Temperature 36.9 C 05/18/25 13:16 Pulse Rate 85 05/18/25 14:43 Respiratory Rate 16 05/18/25 14:43 Blood Pressure 133/92 H 05/18/25 14:43 Pulse Oximetry 98 05/18/25 14:43 Oxygen Delivery Room Air 05/18/25 13:16 MDM - Head Injury MDM Narrative Medical decision making narrative: 69-year-old male with a history of hypertension presenting to the emergency department after an outpatient CT scan was performed today that shows a left frontal subdural hematoma. Patient states that he was at home when he was in the bathroom and felt lightheaded and dizzy and fell forward and woke up on the ground with significant headache. His headache with left-sided intermittent in nature. He went to his primary doctor today to obtain a scan outside the hospital that showed frontal hematoma and he was referred to the emergency department for evaluation. Patient endorsing numbness and tingling in his right lower extremity but no other weakness, sensory deficits, facial droop or asymmetry. No history of brain injuries or trauma before. No anticoagulation use. He takes blood pressure medicines at home but is hypertensive in triage. No chest pain, neck pain, shortness a breath, abdominal pain, vision changes, nausea or vomiting. CT scan was reviewed that shows a left frontal hematoma with adjacent edema. He does have right-sided sensation deficits in the leg consistent with traumatic brain injury finding. He is hemodynamically stable aside from hypertension which needs to be addressed given his brain bleeding. HOB elevated and he was given hydralazine IV, 1500 mg of Keppra started for seizure prophylaxis, placed on cardiac technologist and basic labs and EKG were obtained. Discussed the case with the [facility] transfer system and he was accepted as a direct trauma transfer to their [facility] emergency department under Dr. Pollard. ALS ambulance is were arranged he was transferred to their hospital. Medical Records Attestation: I reviewed the patient's medical records. Lab Data Attestation: I reviewed the patient's lab results. 05/18/25 13:31 05/18/25 13:31 Labs: Lab Results 05/18/25 Range/Units 13:31 WBC 10.0 (4.5-10.0) K/mm3 RBC 5.36 (4.6-6.20) M/mm3 Hgb 16.3 (14.0-18.0) g/dL Hct 48.9 (42.0-52.0) % MCV 91.2 (80-100) fl MCH 30.4 (26-34) pg MCHC 33.3 (32-36) g/dl RDW 12.7 (11.5-14.5) % Plt Count 254 (150-375) k/mm3 MPV 11.0 H (7.4-10.4) fl Immature Gran % (Auto) 0.7 H (0-0.5) % Neut % (Auto) 60.4 (45.5-73.1) % Lymph % (Auto) 29.2 (18.3-44.2) % [place] % (Auto) 6.9 (2.6-8.5) % Eos % (Auto) 2.0 (0-4.4) % Baso % (Auto) 0.8 (0.2-1.2) % Lymph # (Auto) 2.91 (0.9-3.2) K/mm3 [place] # (Auto) 0.7 H (0.1-0.6) K/mm3 Eos # (Auto) 0.2 (0-0.3) K/mm3 Baso # (Auto) 0.1 (0.0-0.1) K/mm3 Abs Immat Gran (auto) 0.07 H (0.00-0.031) K/mm3 Absolute Neuts (auto) 6.0 (1.3-6.7) K/mm3 Absolute Nucleated RBC 0.000 (0.0-0.012) K/mm3 Nucleated RBC % 0.0 (0.0-0.2) % Sodium 138 (137-145) mmol/L Potassium 4.0 (3.4-5.0) mmol/L Chloride 102 (98-107) mmol/L Carbon Dioxide 24 (22-30) mmol/L Anion Gap 12 (4-12) mmol/L BUN 15 (9-20) mg/dL Creatinine 0.81 (0.7-1.3) mg/dL Estim Creat Clear Calc 64 ml/min Estimated GFR > 60 (59 - ) Glucose 152 H (65-110) mg/dL Calcium 9.5 (8.4-10.2) mg/dL Magnesium 1.9 (1.6-2.3) mg/dL Imaging Data Attestation: I personally reviewed and interpreted this imaging study as follows: My impression: Left frontal subdural hematoma approximately 9.1 mm without midline shift, surrounding edema noted Radiologist's impression: FINDINGS: The ventricles are normal in size, shape and position. There is no mass, mass effect or midline shift. A left frontal subdural hematoma is identified, measuring 9.2 cm in greatest dimension consistent with patients history of a remote fall. Effacement of the sulci is detected within the left frontal lobe, suggesting adjacent edema. Visualized paranasal sinuses are clear. The mastoid air cells are well aerated. No acute displaced fractures within the overlying cranium. Impression: Left frontal subdural hematoma with adjacent parenchymal edema Critical Care Time Critical Care Time Critical Care Time: Yes Total Critical Care Time: 35 Discharge Plan Discharge Clinical Impression: Acute subdural hematoma, Traumatic brain injury, CHI (closed head injury) Patient Disposition: Acute Care Hospital Condition: Serious Patient Language: Moroccan Prescriptions: No Action multivitamin Tablet 1 tablet PO DAILY irbesartan 150 mg tablet 150 mg PO DAILY Qty: 30 5RF Follow-up/Referrals: Carolina Shaw NP [Primary Care Provider] - Time of Disposition: 13:47
[2025-05-18 13:45] LABS: Anion Gap 12 mmol/L (4-12); Blood Urea Nitrogen 15 mg/dL (9-20); Calcium 9.5 mg/dL (8.4-10.2); Carbon Dioxide 24 mmol/L (22-30); Chloride 102 mmol/L (98-107); Estimated CRCL calculation 64 ml/min; Estimated Glomerular Filt Rate > 60; Glucose 152 mg/dL (65-110); Magnesium 1.9 mg/dL (1.6-2.3); Potassium 4.0 mmol/L (3.4-5.0); Sodium 138 mmol/L (137-145)
[2025-05-18 14:07] VITALS: BP 139/72; PULSE 93; RESP 14; O2SAT 95
[2025-05-18 14:43] VITALS: BP 133/92; PULSE 85; RESP 16; O2SAT 98
--- NOTE | 2025-05-18 14:43 | PC.NURSE ---
Report given to [facility]. EMS to transport pt. to [facility]. Pt. is A&Ox4, only deficit is still subjective R. foot tingling. Per Dr. Robledo, BP should stay under a systolic of 160. Dr. Robledo relayed this information to EMS who verbalized understanding and will administer hydralazine IV en route if BP goes above parameter.
== END 2025-05-18 14:50 | disposition short-term general hospital (02) ==
PROVIDERS: Emergency Provider Student in an Organized Health Care Education/Training Program; PCP Nurse Practitioner Family
DX: S06.5XAA Traumatic subdural hemorrhage with loss of consciousness status unknown, initial encounter (principal); I10 Essential (primary) hypertension; E78.00 Pure hypercholesterolemia, unspecified; N40.1 Benign prostatic hyperplasia with lower urinary tract symptoms; R35.1 Nocturia; M19.90 Unspecified osteoarthritis, unspecified site; F17.210 Nicotine dependence, cigarettes, uncomplicated; Z85.828 Personal history of other malignant neoplasm of skin; Z86.0100 Personal history of colon polyps, unspecified; I45.10 Unspecified right bundle-branch block; R94.31 Abnormal electrocardiogram [ECG] [EKG]; W18.39XA Other fall on same level, initial encounter
CPT/HCPCS: 36415; 70450; 80048; 83735; 85025; 93005; 96365; 96375; 99291; J0360; J1953